=== PATIENT | male | born 1935 | race Caucasian/White ===

== ENCOUNTER 2017-12-03 00:08 | Day surgery (SDC) | payer MEDICARE, BC ==
[2017-12-03] VITALS (7 sets, daily range): BP systolic 117–141; BP diastolic 54–91
[~2017-12-03] VITALS: Ht 170.2 cm; Wt 77.1 kg
[~2017-12-03 00:08] MED LIST: B CO PO; CEP500 PO; CHOL10005 PO; FAM20 PO; GLUC-130 PO; IBU600 PO; LEVO50 PO; LEVO75TA73 PO; LOR5 PO; OMEP-137 PO; OMEP-218 PO; SIMV-49 PO; VIT-9 PO; [UNRECOGNIZED DRUG - CODE] PO; ceFAZolin(*) 1 GM VIAL 1 GM in NS(*) 0.9% 100 ML ADDVANT BAG 100 ML IVPB ONE
[2017-12-03] MEDS ORDERED: DEXAMETHASONE SOD 4 MG/ML VIAL ONE (08:02)
[2017-12-03] MEDS ORDERED: PROPOFOL EMUL(*) 10MG/ML 20 ML 20 ML ONE (08:02)
[2017-12-03] MEDS ORDERED: ONDANSETRON 4 MG/2 ML VIAL ONE (08:02)
[2017-12-03] MEDS ORDERED: fentaNYL CITR 100 MCG/2 ML AMP ONE (08:02)
[2017-12-03] MEDS ORDERED: LIDOCAINE MPF 1% 5 ML VIAL ONE (08:02)
[2017-12-03] MEDS ORDERED: NORMOSOL R SOLN(*) 1000 ML BAG 1,000 ML IV PRN (09:04)
[2017-12-03] MEDS ORDERED: FAMOTIDINE 20 MG TAB PO ONE (09:30)
[2017-12-03] MEDS ORDERED: LIDOCAINE/SOD BICARB 8.4% SYR ID ONE (09:40)
[2017-12-03] MEDS ORDERED: ceFAZolin(*) 1 GM VIAL 1 GM in NS(*) 0.9% 100 ML ADDVANT BAG 100 ML IV ONE (09:40)
[2017-12-03] MEDS ORDERED: MIDAZOLAM 2 MG/2 ML VIAL IVP PRN (09:40)
[2017-12-03] MEDS ORDERED: GENTAMICIN 80 MG/2 ML VIAL ONE (10:33)
[2017-12-03] MEDS ORDERED: NS(*) 0.9% 100 ML BAG 100 ML ONE (10:42)
[2017-12-03] MEDS ORDERED: BELLADONNA ALK/OPIUM 60MG SUPP PR ONE (11:28)
[2017-12-03] MEDS ORDERED: GLYCOPYRROLATE 0.2MG/ML 1 ML INJ ONE ×2 (11:29)
[2017-12-03] MEDS ORDERED: ACET-3017 PO (11:57)
[2017-12-03] MEDS ORDERED: FAMO-67 PO (11:59)
[2017-12-03] MEDS ORDERED: IBUP600T22 PO (12:00)
[2017-12-03] MEDS ORDERED: CIPR-344 PO (12:01)
--- NOTE | 2017-12-03 12:31 | FLOCK CYSTOURETHROSCOPY ---
EVENT DATE: December 03, 2017 SURGEON: Benoit Peraza MD ANESTHESIOLOGIST: Clinton Randall MD ANESTHESIA: information systems operator: Staff PREOPERATIVE DIAGNOSES 1. Slow difficult urination, etiology ? 2. 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 POSTOPERATIVE DIAGNOSES 1. Slow difficult urination, etiology ? 2. 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 PROCEDURES PERFORMED 1. Cystourethroscopy. 2. Dilation of bladder neck contracture. 3. Hydrodistention of the bladder. DESCRIPTION OF PROCEDURE Under general anesthetic, the patient was prepped and draped in the extended lithotomy position. The 21-Panendoscope was admitted through the urethra and into the bladder. There was noted to be bladder neck contracture that calibrated approximately 14- 16 Tongan. The diaphragm like circular stricture was soft and dilated easily over the tip of the scope. There was minimal bleeding encountered. Bladder showed 4+ trabeculation. Trigone and ureteral orifices were normal. Bladder filled under gravity flow and measured to a total of approximately 800 cc. On drainage of the bladder, there was no bloody drainage. On reinspection of the bladder, there were no glomerulations. The scope was withdrawn. The bladder neck contracture was dilated to 30-Tongan without any difficulty. The #18 catheter passed easily through the urethra into the bladder. The irrigation was clear at the conclusion of the procedure. The patient tolerated the procedure satisfactorily and returned to the recovery room in satisfactory condition. This is an 82-year-old white male complaining of slow difficult urination and urgency and frequency. The patient is status post radical prostatectomy. He is status post dilation of bladder neck contracture several years ago. Patient has done well following his radical prostatectomy for prostate cancer. 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 The patient was so advised and asked to be treated again with dilation as we did before. That has been accomplished. See operative note for details. The patient will be ready for discharge home when alert and functional. He is to force fluids 2 liters per day. Activities are as tolerated. We plan followup on Friday, December 08, 2017. He is to call for an appointment. He is to continue his usual medications. A copy of the instructions was given to the patient. He was given a dose of Toradol in the recovery room. The patient will be discharged home on Cipro, Pepcid, Motrin and Tylenol #3 therapy in addition to his usual medications. The patient was instructed on catheter removal in the a.m. as long as everything is going well. PAULINO
[2017-12-03] MEDS ORDERED: LR(*) 1000 ML BAG 1,000 ML ONE (14:50)
== END 2017-12-03 12:15 | disposition home or self-care (01) ==
LOC: OR 00:08
DX: R39.198 Other difficulties with micturition (principal)
CPT/HCPCS: 52000; 81001; 87088; A9270; J1100; J1580; J2001; J2405; J2704; J3010; J3490; J7050; J7120